=== PATIENT | male | born 1995 | race Caucasian/White ===

== ENCOUNTER 2019-01-23 23:13 | Emergency (ER) | payer MEDICAID ==
[~2019-01-23] VITALS: Ht 170.2 cm; Wt 99.8 kg
[2019-01-23 23:21] VITALS: BP_SYST 153
--- NOTE | 2019-01-23 23:23 | NUR ---
Patient triaged and placed in waiting room. VSS and patient appears in no acute distress at this time. Accompanied by family, awaiting available bed, and MD notified of need for MSE.
--- NOTE | 2019-01-23 23:35 | NUR ---
Patient to ER bed 06 to gown for evaluation. Side rails up. Report given to Stew PAGE.
--- NOTE | 2019-01-23 23:40 | NUR ---
AWAKE , ALERT. PT STATES THAT HE HAD BEEN THROWING UP AND HAVING UNCONTROLLABLE DIARRHEA SINCE 3 AM THIS MORNING. HE HAD BEEN TAKING PEPTO-BISMOL WITH LITTLE RELIEF. HE HAS A HEADACHE, AND WEAKNESS IN HIS LEGS.
[2019-01-24] MEDS ORDERED: ONDANSETRON HCL 4 MG/2 ML VIAL IVP ONE
[2019-01-24] MEDS ORDERED: NACL 0.9% 1,000 ML IV ONE
[2019-01-24 00:20] LABS: BILIRUBIN,URINE NEGATIVE (NEGATIVE); BLOOD, URINE NEGATIVE (NEGATIVE); CLARITY/URINE CLEAR (CLEAR); COLOR,URINE YELLOW (YELLOW); GLUCOSE,URINE NEGATIVE (NEGATIVE); KETONES,URINE NEGATIVE (NEGATIVE); LEUKOCYTE ESTERASE ,URINE NEGATIVE (NEGATIVE); NITRITE, URINE NEGATIVE (NEGATIVE); PROTEIN URINE TRACE (NEGATIVE); UROBILINOGEN,URINE 0.2 (0.2-1.0)
--- NOTE | 2019-01-24 00:20 | NUR ---
ER at bedside examining patient.
[2019-01-24 00:26] LABS: BACTERIA,URINE FEW /HPF (None Seen); RBC,URINE 0-3 /HPF (0-3); WBC,URINE 0-3 /HPF (0-3)
[2019-01-24] MEDS ORDERED: MORPHINE 4 MG/ML INJ. SYRINGE IVP ONE (00:30)
[2019-01-24 00:39] LABS: BASOPHILS % (AUTO) 0.5 % (0.0-2.0); EOSINOPHILS # (AUTO) 0.1 K/uL (0.0-0.4); EOSINOPHILS % (AUTO) 0.6 % (0.0-4.0); HEMATOCRIT 43.6 % (36-54); HEMOGLOBIN 15.1 g/dL (14.0-18.0); LYMPHOCYTES % (AUTO) 10.8 % (20.5-51.5); MEAN CORPUSCULAR HEMOGLOBIN 30 pg (27-31); MEAN CORPUSCULAR HGB CONC 35 % (32-36); MEAN CORPUSCULAR VOLUME 85 fL (79.0-98.0); MONOCYTES # (AUTO) 0.5 K/uL (0.0-1.0); MONOCYTES % (AUTO) 5.5 % (1.7-9.3); NEUTROPHILS # (AUTO) 7.4 K/uL (1.8-7.7); NEUTROPHILS % (AUTO) 82.6 % (40.0-70.0); PLATELET COUNT (AUTO) 200 K/uL (130-430); RED CELL DISTRIBUTION WIDTH 13.7 % (9.0-15.0)
[2019-01-24 00:54] LABS: CALCIUM 8.4 mg/dL (8.4-11.0); CREATININE 0.9 mg/dL (0.55-1.30); POTASSIUM 3.6 mmol/L (3.5-5.1)
[2019-01-24 01:08] LABS: ALBUMIN 3.8 g/dL (3.4-4.8); THYROID STIMULATING HORMONE 0.83 uIu/mL (0.36-3.74); TOTAL BILIRUBIN 0.6 mg/dL (0.0-1.0)
[2019-01-24] MEDS ORDERED: NS 500 ML IV ONE (01:30)
[2019-01-24] MEDS ORDERED: IBUPROFEN 800 MG TABLET PO ONE (02:00)
[2019-01-24 02:20] VITALS: BP_SYST 127
--- NOTE | 2019-01-24 02:20 | NUR ---
Patient given written and verbal discharge instructions and verbalizes understanding. ER DR TARSHA BARBA discussed with patient the results and treatment provided. Patient in stable condition. ID arm band removed. IV catheter removed intact and dressing applied, no active bleeding. Rx of ZOFRAN given. Patient educated on pain management and to follow up with PMD. Pain Scale . Opportunity for questions provided and answered. Medication side effect fact sheet provided.
== END 2019-01-24 02:20 | disposition home or self-care (01) ==
LOC: SED 23:13
DX: E86.0 Dehydration (principal); R11.10 Vomiting, unspecified; R19.7 Diarrhea, unspecified; R74.0 Nonspecific elevation of levels of transaminase and lactic acid dehydrogenase [LDH]
CPT/HCPCS: 36415; 80053; 81000; 82550; 83690; 84443; 85025; 96361; 96374; 96375; 99283; J2270; J2405; J7030

== ENCOUNTER 2021-07-18 00:15 | Emergency (ER) | payer MEDICAID ==
[~2021-07-18] VITALS: Ht 172.7 cm; Wt 108.0 kg
[2021-07-18 00:38] VITALS: BP_SYST 130
--- NOTE | 2021-07-18 00:38 | NUR ---
Patient ambulatory to bed 5 for eval and treatment
[2021-07-18] MEDS ORDERED: AZITHROMYCIN 250 MG TABLET PO ONE (01:45)
[2021-07-18] MEDS ORDERED: cefTRIAXone 500 MG in LIDOCAINE 1%, 20 ML MDV 1 ML IM ONE (01:45)
[2021-07-18 01:59] LABS: BILIRUBIN,URINE NEGATIVE (NEGATIVE); BLOOD, URINE NEGATIVE (NEGATIVE); CLARITY/URINE CLEAR (CLEAR); COLOR,URINE ORANGE (YELLOW); GLUCOSE,URINE 1+ (NEGATIVE); KETONES,URINE 1+ (NEGATIVE); LEUKOCYTE ESTERASE ,URINE NEGATIVE (NEGATIVE); NITRITE, URINE POSITIVE (NEGATIVE); PROTEIN URINE 2+ (NEGATIVE)
[2021-07-18 02:01] LABS: UROBILINOGEN,URINE >=8 (0.2-1.0)
[2021-07-18 02:45] LABS: BACTERIA,URINE FEW /HPF (None Seen); RBC,URINE 0-3 /HPF (0-3); WBC,URINE 0-3 /HPF (0-3)
[2021-07-18 02:46] LABS: CALCIUM OXALATE CRYSTALS,UR 0-10 /HPF (None Seen); MUCUS,URINE None Seen /LPF (None Seen)
[2021-07-18] MEDS ORDERED: NITR-85 PO (03:27)
[2021-07-18 03:35] VITALS: BP_SYST 132
--- NOTE | 2021-07-18 03:35 | NUR ---
Stressed the importance of f/u with pcp and to fill prescription naoime. D/c teaching completed along with medication teaching. Pt verbalized understanding the discharge instructions.
== END 2021-07-18 03:35 | disposition home or self-care (01) ==
LOC: SED 00:15
DX: N34.2 Other urethritis (principal)
CPT/HCPCS: 81000; 82962; 87086; 96372; 99283; J0696; Q0144